=== PATIENT | female | born 1960 | race Caucasian/White ===

== ENCOUNTER → 2019-09-18 | Outpatient (CLI) | payer OTHER ==
--- NOTE | 2019-09-18 14:34 | RAD ---
Right lower extremity venous doppler ultrasound Indication: Right leg pain. Technique: Color Doppler, grayscale, and spectral waveform analysis is used to evaluate the right femoral and popliteal veins. Findings: No evidence of deep venous thrombosis. Normal response to augmentation, normal compressibility and normal phasicity is demonstrated. Visualized calf veins are patent. Impression: Negative for deep venous thrombosis Electronically signed by: Oj Ayers MD (09/18/2019 2:31 PM) [id number]
--- NOTE | 2019-09-18 14:53 | RAD ---
Examination: FOOT RIGHT 3V, ANKLE RIGHT 3V History: Pain and swelling Comparison/Correlation: None Findings: 3 images of the right ankle and 3 images of the right foot were obtained. Ankle joint mortise is unremarkable. No acute fracture or bone destruction. Very small calcaneal spur is present. No significant joint space narrowing. Impression: No acute processes. Electronically signed by: Duarte Snow MD (09/18/2019 2:49 PM) [facility]
--- NOTE | 2019-09-18 14:53 | RAD ---
Examination: FOOT RIGHT 3V, ANKLE RIGHT 3V History: Pain and swelling Comparison/Correlation: None Findings: 3 images of the right ankle and 3 images of the right foot were obtained. Ankle joint mortise is unremarkable. No acute fracture or bone destruction. Very small calcaneal spur is present. No significant joint space narrowing. Impression: No acute processes. Electronically signed by: Duarte Snow MD (09/18/2019 2:49 PM) [facility]
== END | disposition home or self-care (01) ==
LOC: US 13:57
PROVIDERS: ATTEND Family Medicine
DX: M77.31 Calcaneal spur, right foot (principal)
CPT/HCPCS: 73610; 73630; 93971